=== PATIENT | male | born 1985 | race American Indian/Alaskan Native ===

== ENCOUNTER 2019-04-25 13:52 | Emergency (ER) | payer MEDICAID ==
[2019-04-25 13:53] VITALS: BMI 58.6
[2019-04-25 14:09] VITALS: BP 148/93; PULSE 87; RESP 18; TEMP 98.2; O2SAT 97
[2019-04-25] MEDS ORDERED: Bacitracin 500 Units/gm Oint Foilpak UD TOP ONE (14:16)
--- NOTE | 2019-04-25 14:25 | ED PDOC ---
Arrival/HPI - General Chief Complaint: Abnormal Skin Integrity Time Seen by Provider: 04/25/19 13:53 Historian: Patient - History of Present Illness Narrative History of Present Illness (Text): 34 y/o male with no significant PMH presents to the ED for evaluation of skin tag to right leg. Pt is unsure how long he has had the lesion but states it began to bleed yesterday when he changed position on the couch. Bleeding controlled at home with pressure. Bleeding has not returned since the incident. Has never seen a primary doctor, surgeon, or cutter wet machine for this complaint. Has not taken any medication for pain. Denies urinary symptoms, bowel/bladder incontinence or retention, back pain, fever, chills, nausea, vomiting, abdominal pain, diarrhea, constipation, skin redness/warmth, drainage from lesion, or any other associated symptoms. Past Medical History - Provider Review Nursing Documentation Reviewed: Yes - Past History Past History: Non-Contributing - Infectious Disease Hx of Infectious Diseases: None - Tetanus Immunization Tetanus Immunization: Unknown - Past Medical History Past Medical History: No Previous - Psychiatric Hx Substance Use: No - Past Surgical History Past Surgical History: No Previous - Suicidal Assessment Feels Threatened In Home Enviroment: No Family/Social History - Physician Review Nursing Documentation Reviewed: Yes Family/Social History: No Known Family HX Smoking Status: Light Smoker < 10 Cigarettes Daily Hx Alcohol Use: Yes Hx Substance Use: No Hx Substance Use Treatment: No Allergies/Home Meds Allergies/Adverse Reactions: Allergies No Known Allergies Allergy (Verified 04/25/19 14:09) Review of Systems - Review of Systems Constitutional: Normal. absent: Fevers Respiratory: Normal. absent: SOB, Cough Cardiovascular: Normal. absent: Chest Pain, Palpitations, Syncope Gastrointestinal: Normal. absent: Abdominal Pain, Constipation, Diarrhea, Nausea, Vomiting, Hematochezia, Hematemesis Genitourinary Male: Normal. absent: Dysuria, Frequency Musculoskeletal: Normal. absent: Back Pain, Neck Pain Skin: Skin Lesions. absent: Rash, Cellulitis Neurological: Normal. absent: Headache, Dizziness Physical Exam Vital Signs Reviewed: Yes Vital Signs Temp Pulse Resp BP Pulse Ox 04/25/19 14:07 98.2 F 87 18 148/93 H 97 Temperature: Afebrile Blood Pressure: Hypertensive Pulse: Regular Respiratory Rate: Normal Appearance: Positive for: Well-Appearing, Non-Toxic, Comfortable Pain Distress: None Mental Status: Positive for: Alert and Oriented X 3 - Systems Exam Head: Present: Atraumatic, Normocephalic Pupils: Present: PERRL Extroacular Muscles: Present: EOMI Conjunctiva: Present: Normal Mouth: Present: Moist Mucous Membranes Abdomen: Present: Other (obese). No: Tenderness Back: Present: Normal Inspection Upper Extremity: Present: Normal Inspection, Normal ROM Lower Extremity: Present: Normal Inspection. No: Edema Neurological: Present: GCS=15, Speech Normal, Gait Normal Skin: Present: Warm, Dry, Other (right inner gluteal fold - [id number] skin colored pedunculated thick-stemmed skin tag with small tear on lateral edge; no erythema, fluctuance, induration, or warmth) Psychiatric: Present: Alert, Oriented x 3, Normal Insight, Normal Concentration Medical Decision Making ED Course and Treatment: Advised general surgery or dermatology followup for lesion removal, referrals provided. Lesion unable to be removed in ED secondary to size and unknown vascularization of the lesion. Patient refused bacitracin application to lesion here in ED. Diagnostic testing results and plan of care discussed with patient. Strict instructions given regarding prescription use, importance of followup, and signs/symptoms to return to ER including fever, chills, worsening pain, problems moving bowel/bladder, or any other new/worsening symptoms. Pt verbalized understanding of discussion. Patient is A&Ox3, ambulating with steady gait, with vital signs stable for discharge. Disposition/Present on Arrival - Present on Arrival Any Indicators Present on Arrival: No History of DVT/PE: No History of Uncontrolled Diabetes: No Urinary Catheter: No History of Decub. Ulcer: No History Surgical Site Infection Following: None - Disposition Have Diagnosis and Disposition been Completed?: Yes Diagnosis: Skin tag Disposition: HOME/ ROUTINE Disposition Time: 14:25 Patient Plan: Discharge Condition: STABLE Discharge Instructions (ExitCare): Skin Tags (Acrochordon) Additional Instructions: Followup with general surgery within 2 days Ibuprofen every 8 hours as needed for pain Return to ER with any new/worsening symptoms Prescriptions: Ibuprofen [Motrin Tab] 600 mg PO Q8 PRN #30 tab PRN Reason: Pain, Moderate (4-7) Referrals: Kalen Flores MD [Staff Provider] - Follow up with primary Cris Ashford MD [Staff Provider] - Follow up with primary Forms: [facility] (Turkish), WORK NOTE
== END 2019-04-25 15:25 | disposition home or self-care (01) ==
LOC: ED 13:52
DX: L91.8 Other hypertrophic disorders of the skin (principal)